=== PATIENT | male | born 1955 | race Caucasian/White ===

== ENCOUNTER → 2017-10-31 | Outpatient (REF) | payer MEDICARE ==
[2017-10-31 14:09] LABS: PTT LUPUS TYPE ANTICOAG SCREEN 0.9 (0-1.2)
[2017-10-31 14:10] LABS: TOTAL 25(OH) VITAMIN D 28.6 NG/ML (30.0-100.0)
[2017-10-31 14:14] LABS: ALBUMIN/GLOBULIN RATIO 0.95 (1.00-1.93); ALKALINE PHOSPHATASE 74 U/L (45-117); ALT/SGPT 20 U/L (12-78); ANION GAP 6 MEQ/L (8-16); AST/SGOT 15 U/L (7-37); BILIRUBIN,TOTAL 0.3 MG/DL (0.2-1.0); BLOOD UREA NITROGEN 9 MG/DL (7-18); CALCIUM LEVEL 9.6 MG/DL (8.8-10.2); CARBON DIOXIDE LEVEL 29 MEQ/L (21-32); CHLORIDE LEVEL 107 MEQ/L (98-107); CREATININE FOR GFR 0.99 MG/DL (0.70-1.30); GLOMERULAR FILTRATION RATE > 60.0 (>49); GLUCOSE, FASTING 110 MG/DL (80-110); POTASSIUM SERUM 4.8 MEQ/L (3.5-5.1); RHEUMATOID FACTOR QUANT < 10.0 IU/ML (0-15.0); SODIUM LEVEL 142 MEQ/L (136-145); TOTAL PROTEIN 8.2 GM/DL (6.4-8.2)
[2017-10-31 15:10] LABS: BASO # 0.1 10^3/uL (0.0-0.2); BASO % 0.8 % (0.0-1.0); EOS # 0.1 10^3/uL (0.0-0.50); EOS % 1.1 % (0.0-3.0); HEMATOCRIT 44.4 % (42.0-52.0); HEMOGLOBIN 14.7 g/dl (14.0-18.0); IMMATURE GRANULOCYTE % 0.3 % (0-0); LYMPH # 3.2 10^3/uL (1.5-4.5); MEAN CORPUSCULAR HEMOGLOBIN 31.6 pg (27.0-33.0); MEAN CORPUSCULAR HGB CONC 33.1 g/dl (32.0-36.5); MEAN CORPUSCULAR VOLUME 95.5 fl (80.0-96.0); MONO # 0.7 10^3/uL (0.0-0.8); MONO % 7.7 % (0.0-5.0); NEUTROPHILS # 4.8 10^3/uL (1.8-7.7); NEUTROPHILS % 54.1 % (36.0-66.0); PLATELET COUNT, AUTOMATED 288 10^3/uL (150-450); RED BLOOD COUNT 4.65 10^6/uL (4.30-6.10); RED CELL DISTRIBUTION WIDTH 12.6 % (11.5-14.5)
[2017-10-31 16:01] LABS: ERYTHROCYTE SEDIMENTATION RATE 6 mm/hr (0-20)
[2017-11-02 11:27] LABS: ALBUMIN 4.71 GM/DL (3.29-5.55); ALBUMIN % 57.4 % (55.8-66.1); ALPHA-1-GLOBULINS 0.25 GM/DL (0.17-0.41); ALPHA-2-GLOBULINS % 8.5 % (7.1-11.8); BETA-1-GLOBULINS 0.51 GM/DL (0.28-0.60); BETA-1-GLOBULINS % 6.2 % (4.7-7.2); BETA-2-GLOBULINS % 6.1 % (3.2-6.5); GAMMA GLOBULIN % 18.8 % (11.1-18.8); GAMMA GLOBULINS 1.54 GM/DL (0.65-1.58)
[2017-11-07 14:12] LABS: ANTI DOUBLE STRAND-DNA AB 1 IU/mL (0-9); ANTINUCLEAR ANTIBODIES DIRECT Negative (Negative); SJOGREN'S ANTI SS-A <0.2 AI (0.0-0.9); SJOGREN'S ANTI SS-B <0.2 AI (0.0-0.9); VITAMIN B1 LEVEL WHOLE BLOOD 179.4 nmol/L (66.5-200.0); VITAMIN B6,PYRIDOXAL PHOSPHATE 7.3 ug/L (5.3-46.7); VITAMIN E LEVEL 11.1 mg/L (5.3-17.5)
== END ==
LOC: M LABNEURO 10:50
DX: R41.3 Other amnesia (principal); E11.9 Type 2 diabetes mellitus without complications; Z79.899 Other long term (current) drug therapy
CPT/HCPCS: 84165

== ENCOUNTER → 2018-01-02 | Outpatient (REF) | payer MEDICARE ==
[2018-01-02 18:23] LABS: FREE T3 2.9 PG/ML (2.2-4.0); FREE T4 0.72 NG/DL (0.76-1.46); FREE THYROXINE INDEX 2.4 % (1.4-3.8); T UPTAKE 32 % (33-40); THYROXINE (T4) 7.5 UG/DL (4.5-12.0)
[2018-01-02 18:27] LABS: TOTAL T3 83.7 NG/DL (60.0-181.0)
[2018-01-05 08:16] LABS: THYROID STIMULATING IMMUNOGLOB <0.10 IU/L (0.00-0.55)
== END ==
LOC: M LABNEURO 11:49
DX: R94.6 Abnormal results of thyroid function studies (principal)
CPT/HCPCS: 84443